=== PATIENT | female | born 1990 | race Two or more races ===

== ENCOUNTER 2018-12-06 20:24 | Emergency (ER) | payer OTHER ==
--- NOTE | 2018-12-06 21:11 | ED Physician Chart ---
ED Chief Complaint/HPI - Patient Information Date Seen:: 12/06/18 Time Seen:: 20:50 Chief Complaint:: headache History of Present Illness:: Visual was riding on a fever today and developed pressure sensation behind both eyes frontal (forehead) pressure sensation. She felt confused. No prior similar episodes. Allergies:: Allergies Allergy/AdvReac Type Severity Reaction Status Date / Time No Known Allergies Allergy Verified 12/06/18 20:45 Vitals:: Vital Signs - 8 hr 12/06/18 20:30 Temp 98.3 F HR 75 RR 18 BP 107/58 O2 Sat % 96 Historian:: Patient Review:: Nurse's Note Reviewed ED Review of Systems - Review of Systems General/Constitutional: No fever, No chills Skin: No skin lesions Head: Headache Eyes: No loss of vision ENT: No earache Neck: No neck pain, No swelling Cardio Vascular: No chest pain, No palpitations Pulmonary: No SOB, No cough, No sputum GI: No nausea, No vomiting, No diarrhea G/U: No dysuria Musculoskeletal: No bone or joint pain, No back pain, No muscle pain Endocrine: No polyuria Psychiatric: No prior psych history, No depression, No anxiety Hematopoietic: No bruising Allergic/Immuno: No urticaria Neurological: No syncope, No focal symptoms ED Past Medical History - Past Medical History Past Medical History: No significant medical hx Family History: Heart disease, Diabetes Melitus, HTN Social History: Non Smoker, Alcohol, Other (occasional alcohol consumption) Surgical History: None Medication: None Family Medical History - Family Member Mother Hx Family Hypertension: Yes Hx Family Diabetes: Yes ED Physical Exam - Physical Examination General/Constitutional: Awake, Well-developed, well-nourished, Alert, No distress Head: Atraumatic Eyes: Lids, conjuctiva normal, PERRL, EOMI Other Eyes comments:: Optic disc are sharp Skin: Nl inspection, No rash, No skin lesions, No ecchymosis, Well hydrated, No lymphadenopathy ENMT: External ears, nose nl, TM canals nl, Nasal exam nl, Lips, teeth, gums nl , Oropharynx nl, Tonsils nl Neck: No nuchal rigidity Respiratory: Nl effort/Exclusion, Clear to Auscultation, No Wheeze/Rhonchi/Rales Cardio Vascular: RRR, No murmur, gallop, rubs, NL S1 S2 GI: No tenderness/rebounding/guarding, No organomegaly, No hernia, Normal BS's, Nondistended : No CVA tenderness Extremities: Normal digits & nails Neuro/Psych: Alert/oriented, Judgement/insight normal, Normal gait, No focal deficits Other Neuro/Psych comments:: Strong equal hand grasp; finger to nose test intact ED Septic Shock - . Is Septic Shock (SBP<90, OR Lactate>4 mmol\L) present?: No - <6hrs of presentation: Vital Signs: Vital Signs - 8 hr 12/06/18 20:30 Temp 98.3 F HR 75 RR 18 BP 107/58 O2 Sat % 96 ED Reassessment (Disposition) - Reassessment Reassessment:: At 2130 patient felt better. She felt less confused but still had some mild right temporal headache. Since she got much better after the Imitrex she is most likely having a migraine headache (Imitrex is both diagnostic and therapeutic). Reassessment Condition:: Improved - Aftercare/Follow up Instructions Aftercare/Follow-Up Instructions:: Refer to Discharge Instructions Medication Prescribed:: Imitrex 100 mg #9 to take one half to one daily when necessary headache - Patient Disposition Discharge/Transfer:: Home Condition at Disposition:: Stable, Improved
== END 2018-12-06 21:33 | disposition home or self-care (01) ==
LOC: ER 20:24
DX: R51 Headache (principal); R41.0 Disorientation, unspecified
CPT/HCPCS: Z7502